=== PATIENT | male | born 1950 | race Caucasian/White ===

== ENCOUNTER 2017-03-14 14:56 | Emergency (ER) | payer OTHER ==
[2017-03-14 15:56] LABS: BASOPHIL % 0.6 % (0-2); PLATELET COUNT 332 x10^3mcL (130-400); RED CELL DISTRIBUTION WIDTH 14.1 % (11.5-14.5)
[2017-03-14 16:05] LABS: CALCIUM 8.3 mg/dL (8.5-10.1); CARBON DIOXIDE 21.9 mmol/L (21-32); CHLORIDE SERUM 104 mmol/L (98-107); CREATININE SERUM 0.9 mg/dL (0.7-1.3); GFR1 > 60 mL/min; GLUCOSE SERUM 119 mg/dL (74-106); POTASSIUM SERUM 3.3 mmol/L (3.5-5.1); SODIUM SERUM 141 mmol/L (136-145)
[2017-03-14 16:18] LABS: ALBUMIN 3.4 g/dL (3.4-5.0); ALKALINE PHOSPHATASE 62 U/L (46-116); ALT/SGPT 41 U/L (16-63); AMYLASE 59 U/L (25-115); AST/SGOT 32 U/L (15-37); CHOLESTEROL 217 mg/dL (<200); HDL CHOLESTEROL 62 mg/dL (40-60); LIPASE 283 IU/L (73-393); MAGNESIUM 2.1 mg/dL (1.8-2.4); T4(THYROXINE) 7.2 ug/dL (4.7-13.3); TOTAL PROTEIN, SERUM 7.3 g/dL (6.4-8.2)
[2017-03-14 17:49] LABS: UA SPECIFIC GRAVITY <=1.005 (1.005-1.035); microscopic required? YES; urine erythrocyte TRACE (NEGATIVE)
[2017-03-14 18:02] LABS: AMPHETAMINE QUAL UR NONE DETECTED (NEG <=1000)
[2017-03-14 19:16] VITALS: BP 130/81
== END 2017-03-14 19:16 | disposition home or self-care (01) ==
LOC: ED 14:56
PROVIDERS: Emergency Medicine
DX: R07.89 Other chest pain (principal); R10.13 Epigastric pain; E78.00 Pure hypercholesterolemia, unspecified; I10 Essential (primary) hypertension; F17.210 Nicotine dependence, cigarettes, uncomplicated; F10.20 Alcohol dependence, uncomplicated; Z71.6 Tobacco abuse counseling
CPT/HCPCS: 82962; 83880; 87804; G0480; J3411; J3475; J3490; J7030

== ENCOUNTER 2018-09-01 14:19 | Inpatient (IN) | payer OTHER, MEDICAID ==
[~2018-09-01] VITALS: Ht 170.2 cm; Wt 81.7 kg
[2018-09-01 14:25] VITALS: Ht 170.2 cm; Wt 81.7 kg
--- NOTE | 2018-09-01 14:58 | NUR ---
PT BIB AMBULANCE TODAY WITH C/C OF RIGHT LEG PAIN X1 DAY. PAIN WAS SUDDEN ONSET TODAY FROM RIGHT KNEE DOWN TO FOOT. PT DENIES ANY TRAUMA. REDNESS AND SWELLING NOTED TO RIGHT LATERAL ASPECT OF ANKLE AREA. PMSC INTACT. PT IS AWAKE AND ALERT, RESP E/U, NAD NOTED.
[2018-09-01 15:20] LABS: CALCIUM 8.6 mg/dL (8.5-10.1); CARBON DIOXIDE 24.2 mmol/L (21-32); CHLORIDE SERUM 107 mmol/L (98-107); CREATININE SERUM 0.8 mg/dL (0.7-1.3); GFR1 > 60 mL/min; GLUCOSE SERUM 89 mg/dL (74-106); POTASSIUM SERUM 3.8 mmol/L (3.5-5.1); SODIUM SERUM 145 mmol/L (136-145)
[2018-09-01 15:25] LABS: ALBUMIN 3.6 g/dL (3.4-5.0); ALKALINE PHOSPHATASE 56 U/L (46-116); ALT/SGPT 34 U/L (16-63); AST/SGOT 23 U/L (15-37); BILIRUBIN TOTAL 0.3 mg/dL (0.20-1.00); TOTAL PROTEIN, SERUM 7.6 g/dL (6.4-8.2)
[2018-09-01 15:27] LABS: BASOPHIL % 0.4 % (0-2); PLATELET COUNT 263 x10^3mcL (130-400)
--- NOTE | 2018-09-01 15:34 | NUR ---
PT AT BEDSIDE. MONITORS IN PLACE. IVF INFUSING ORDERED
--- NOTE | 2018-09-01 15:51 | NUR ---
LACTIC ACID CRITICAL RESULTS GIVEN TO JUICE. SHAHEEN LOAN EXPEDITOR VERBALIZED RESULTS TO ME AND I GAVE IT TO DOCTOR JOSE ENRIQUE
[2018-09-01] MEDS ORDERED: COZAAR50 M1 PO (16:57)
[2018-09-01] MEDS ORDERED: SIMVASTATIN20 M1 PO (16:57)
[2018-09-01] MEDS ORDERED: IBUPROFEN400 MG PO (16:58)
[2018-09-01] MEDS ORDERED: GOOD SENSE OMEP20 MG PO (16:58)
--- NOTE | 2018-09-01 17:21 | NUR ---
pt received dinner tray
--- NOTE | 2018-09-01 17:45 | NUR ---
PT TAKEN TO CT SCAN FOR IV CONTRAST EXAM
--- NOTE | 2018-09-01 17:51 | NUR ---
REPORT GIVEN TO MATT RECEIVING M/S NURSE
[2018-09-01 19:10] VITALS: BP 122/68
--- NOTE | 2018-09-01 19:13 | NUR ---
RECEIVED PT FROM ED [facility] [employer]. ORIENTED PT TO ROOM AND SURROUNDINGS. IV NOTED TO LAC PATENT AND INTACT. INSTRUCTED PT ON THE USE OF CALL LIGHT FOR ASSISTANCE. ENDORSED PT TO PRIMARY NURSE MARCELINO
--- NOTE | 2018-09-01 19:52 | NUR ---
RECEIVED PT FROM ED, C/O RIGHT ANKLE PAIN 08/16, REFUSING PAIN MEDICATION AT THIS TIME. ORIENTED PT TO ROOM. BED IN LOWEST POSITION, SIDE RAILS UP X2, CALL LIGHT WITHIN REACH. WILL CONTINUE TO MONITOR.
--- NOTE | 2018-09-01 20:00 | NUR ---
LACTIC ACID 3.6, DR CHAN INFORMED. NO NEW ORDERS RECEIVED. PT RESTING IN BED, NO ACUTE DISTRESS. WILL CONTINUE TO MONITOR.
[2018-09-01 20:35] VITALS: BP 118/66
[2018-09-02 00:30] LABS: microscopic required? NO
[2018-09-02 00:37] LABS: UA SPECIFIC GRAVITY <=1.005 (1.005-1.035); urine erythrocyte NEGATIVE (NEGATIVE)
--- NOTE | 2018-09-02 01:57 | NUR ---
PT CURRENTLY RESTING IN BED, NO ACUTE DISTRESS. WILL CONTINUE TO MONITOR.
[2018-09-02 05:02] VITALS: BP 113/62
[2018-09-02 06:53] LABS: BASOPHIL % 0.3 % (0-2); PLATELET COUNT 233 x10^3mcL (130-400)
--- NOTE | 2018-09-02 06:55 | NUR ---
PT SLEPT PERIODICALLY THROUGHOUT NIGHT, NO ACUTE DISTRESS. ALL NEEDS MET AND ATTENDED TO. NO SIGNIFICANT CHANGES. IV PATENT AND INTACT. MEDICATED PAIN PER EMAR. BED IN LOWEST POSITION, SIDE RAILS UP X2, CALL LIGHT WITHIN REACH. WILL ENDORSE CARE TO ONCOMING NURSE.
--- NOTE | 2018-09-02 07:21 | NUR ---
RECEIVED AWAKE, ALERT AND ORIENTED. IN NO RESP. DISTRESS. VS WNL. NO C/O PAIN AT THIS TIME. RT LEG ELEVETED WITH PILLOW. CALL LIGHT WITHIN REACH. WILL CONTINUE WITH PLAN OF CARE.
[2018-09-02 07:36] LABS: RED CELL DISTRIBUTION WIDTH 16.1 % (11.5-14.5)
[2018-09-02 07:41] LABS: ALKALINE PHOSPHATASE 51 U/L (46-116); ALT/SGPT 7 U/L (16-63); AST/SGOT 15 U/L (15-37); CALCIUM 8.1 mg/dL (8.5-10.1); CHLORIDE SERUM 108 mmol/L (98-107); CREATININE SERUM 0.7 mg/dL (0.7-1.3); GFR1 > 60 mL/min; GLUCOSE SERUM 103 mg/dL (74-106); MAGNESIUM 2.1 mg/dL (1.8-2.4); POTASSIUM SERUM 3.8 mmol/L (3.5-5.1); SODIUM SERUM 141 mmol/L (136-145)
[2018-09-02 08:08] VITALS: BP 130/69
--- NOTE | 2018-09-02 08:59 | NUR ---
PT C/O PAIN TO RLE 10/10, MEDICATED WITH NORCO PO PER ORDER. ENCOURAGED TO KEEP THE FOOT ELEVETED WITH PILLOW.PT REPORTED TENDERNESS TO IV SITE, NOTED SLIGHTLY SWOLLEN. IVF STOPPED AND WILL REINSERT NEW LINE.
[2018-09-02 11:48] VITALS: BP 122/78
--- NOTE | 2018-09-02 12:08 | NUR ---
SITTING AT THE EDGE OF THE BED EATING LUNCH. NO C/O PAIN AT THIS TIME
--- NOTE | 2018-09-02 13:34 | NUR ---
PT GOT UP TO THE BATHROOM, PRASHANT. FAIRLY. C/O PAIN TO RLE 10/17. MEDICATED WITH NORCO.
[2018-09-02 16:11] VITALS: BP 129/68
--- NOTE | 2018-09-02 18:32 | NUR ---
PT RESTING AT THIS TIME. NO RESP. DISTRESS NOTED. NO C/O PAIN OR DISCOMFORT. IVF INFUSING WELL AND SITE CLEAR. VS STABLE. CALL LIGHT WITHIN REACH. WILL BE ENDORSED TO INCOMING SHIFT.
--- NOTE | 2018-09-02 20:05 | NUR ---
PT CURRENTLY RESTING IN BED, NO ACUTE DISTRESS. A/O X4. NO TELE, MED/SURG. DENIES CHEST PAIN. PULSES PALPABLE IN ALL EXTREMITIES, NO EDEMA NOTED. LUNG SOUNDS CTA BILATERALLY, DENIES SOB. BOWEL SOUNDS ACTIVE, LAST BM 09/02/18. VOIDING WELL. RLE WEAKNESS, SPLINT IN PLACE. RLE CELLULITIS, UNABLE TO VISUALIZE DUE TO SPLINT. C/O RLE PAIN /10, MEDICATED PER EMAR. IV PATENT AND INTACT. BED IN LOWEST POSITION, SIDE RAILS UP X2, CALL LIGHT WITHIN REACH. WILL CONTINUE TO MONITOR.
[2018-09-02 21:01] VITALS: BP 125/73
--- NOTE | 2018-09-03 00:14 | NUR ---
PT CURRENTLY RESTING IN BED, NO ACUTE DISTRESS. WILL CONTINUE TO MONITOR.
[2018-09-03 05:48] VITALS: BP 156/77
[2018-09-03 07:12] LABS: BASOPHIL % 0.5 % (0-2); PLATELET COUNT 227 x10^3mcL (130-400)
[2018-09-03 07:15] LABS: RED CELL DISTRIBUTION WIDTH 15.9 % (11.5-14.5)
--- NOTE | 2018-09-03 07:28 | NUR ---
RECEIVED AWAKE, ALERT AND ORIENTED. IN NO RESP. DISTRESS. VS WNL. IVF INFUSING WELL AND SITE CLEAR. CALL LIGHT WITHIN REACH. WILL CONTINUE WITH PLAN OF CARE.
[2018-09-03 07:35] LABS: CALCIUM 8.6 mg/dL (8.5-10.1); CARBON DIOXIDE 22.5 mmol/L (21-32); CHLORIDE SERUM 105 mmol/L (98-107); CREATININE SERUM 0.7 mg/dL (0.7-1.3); GFR1 > 60 mL/min; GLUCOSE SERUM 100 mg/dL (74-106); POTASSIUM SERUM 3.7 mmol/L (3.5-5.1); SODIUM SERUM 139 mmol/L (136-145)
--- NOTE | 2018-09-03 07:59 | NUR ---
PT C/O PAIN 10/10 AFTER AMBULATING TO THE BATHROOM. MEDICATED WITH MORPHINE IVP PER ORDER.
[2018-09-03 08:14] VITALS: BP 139/77
[2018-09-03 11:57] VITALS: BP 150/76
--- NOTE | 2018-09-03 12:06 | NUR ---
RESTING IN BED, FAMILY AT BEDSIDE. NO DISTRESS NOTED. NO C/O PAIN
[2018-09-03 17:32] VITALS: BP 147/90
--- NOTE | 2018-09-03 18:34 | NUR ---
PT REMAINS IN NO DISTRESS. AWAKE AND ALERT. NO CHANGES IN VS. NO C/O PAIN OR DISCOMFORT. IVF INFUSNG WELL AND SITE CLEAR. PT ENCOURAGED TO KEEP RLE ELEVETED AT ALL THE TIME WHILE IN BED.VERBALIZED UNDERSTANDING. FAMILY AT BEDSIDE. CALL LIGHT WITHIN REACH. WILL BE ENDORSED TO INCOMING SHIFT.
--- NOTE | 2018-09-03 19:38 | NUR ---
PT CURRENTLY RESTING IN BED, NO ACUTE DISTRESS. A/O X4. NO TELE, MED/SURG. DENIES CHEST PAIN. PULSES PALPABLE IN ALL EXTREMITIES, NO EDEMA NOTED. LUNG SOUNDS CTA BILATERALLY, DENIES SOB. BOWEL SOUNDS ACTIVE, LAST BM 09/03/18. VOIDING WELL. RLE WEAKNESS, SPLINT IN PLACE. RLE CELLULITIS, UNABLE TO VISUALIZE DUE TO SPLINT. C/O RLE PAIN 07/17, REFUSING MEDICATION AT THIS TIME. IV PATENT AND INTACT. BED IN LOWEST POSITION, SIDE RAILS UP X2, CALL LIGHT WITHIN REACH. WILL CONTINUE TO MONITOR.
[2018-09-03 20:43] VITALS: BP 103/70
--- NOTE | 2018-09-04 00:19 | NUR ---
PT CURRENTLY RESTING IN BED, NO ACUTE DISTRESS. WILL CONTINUE TO MONITOR.
[2018-09-04 05:28] VITALS: BP 113/80
[2018-09-04 07:11] LABS: BASOPHIL % 0.5 % (0-2); PLATELET COUNT 235 x10^3mcL (130-400)
[2018-09-04 07:33] LABS: RED CELL DISTRIBUTION WIDTH 16.1 % (11.5-14.5)
[2018-09-04 07:44] LABS: ALKALINE PHOSPHATASE 46 U/L (46-116); ALT/SGPT 34 U/L (16-63); AST/SGOT 25 U/L (15-37); BILIRUBIN DIRECT 0.08 mg/dL (0.0-0.2); BILIRUBIN TOTAL 0.4 mg/dL (0.20-1.00); CALCIUM 8.5 mg/dL (8.5-10.1); CARBON DIOXIDE 26.5 mmol/L (21-32); CHLORIDE SERUM 104 mmol/L (98-107); CREATININE SERUM 0.8 mg/dL (0.7-1.3); GFR1 > 60 mL/min; GLUCOSE SERUM 107 mg/dL (74-106); POTASSIUM SERUM 3.4 mmol/L (3.5-5.1); SODIUM SERUM 140 mmol/L (136-145); TOTAL PROTEIN, SERUM 6.7 g/dL (6.4-8.2)
[2018-09-04 07:46] LABS: ALBUMIN 2.8 g/dL (3.4-5.0)
--- NOTE | 2018-09-04 08:29 | NUR ---
AAO TIMES 4. MED SURG PATIENT. LUNGS CTA. NO SOB. O2 SAT ON RA 96%. BS'S ACTIVE TIMES 4. HILLMAN STRONG, EXCEPT RLE WITH SPLINT AND KARRI WRAP, ELEVATED ON PILLOWS. IV SITE LEFT HAND PATENT, CDI. COOPERATIVE AND PLEASANT. PERIPHERAL PULSES PALPABLE, NO EDEMA. RIGHT FOOT WITH TOES WARM, SKIN BROWN, AND TOES MOVEABLE.
[2018-09-04 09:37] VITALS: BP 134/75
[2018-09-04 16:44] VITALS: BP 124/81
--- NOTE | 2018-09-04 17:35 | NUR ---
GAVE HIM DISCHARGE INSTRUCTIONS, NO PRESRIPTION. PATIENT STATED HE WILL TAKE MOTRIN OR TYLENOL FOR PAIN AT HOME. DC'D HIS SALINE LOCK, ANGIO INTACT. C/O PAIN TO LLE CASTED LEG, GAVE NORCO PO AT [id number]. HE KNOWS TO KEEP HIS CASTED LEG ELEVATED ON A FEW PILLOWS WHEN HE IS LAYING DOWN. HE HAS A WALKER AT HIS BEDSIDE FOR HIM TO TAKE HOME, HE IS PROFICIENT AND STRONG USING IT. HE KNOWS HE IS TO FOLLOW UP WITH DR BALL IN 2 DAYS, AND HAS THE PHONE NUMBER [phone]. HIS TOES TO RIGHT FOOT ARE WARM AND MOVEABLE.
== END 2018-09-04 17:51 | disposition home or self-care (01) | DRG 563 ==
LOC: ED 14:19 → MU 16:39
PROVIDERS: Emergency Medicine; Internal Medicine; Internal Medicine Pulmonary Disease; Neuromusculoskeletal Medicine, Sports Medicine; ADMIT Internal Medicine Pulmonary Disease
PROC: 2W3QX2Z Immobilization of Right Lower Leg using Cast (ICD-10-PCS; principal; 2018-09-04 13:15)
DX: S82.831A Other fracture of upper and lower end of right fibula, initial encounter for closed fracture (principal); K21.9 Gastro-esophageal reflux disease without esophagitis; E78.5 Hyperlipidemia, unspecified; I10 Essential (primary) hypertension; X58.XXXA Exposure to other specified factors, initial encounter; Y93.89 Activity, other specified; Y92.018 Other place in single-family (private) house as the place of occurrence of the external cause; Z68.28 Body mass index [BMI] 28.0-28.9, adult
CPT/HCPCS: G0378; J1644; J2270; J2405; J2543; J3370; J7030; Q0092; Q9967